=== PATIENT | male | born 1950 | race Caucasian/White ===

== ENCOUNTER → 2016-12-26 | Outpatient (CLI) | payer OTHER ==
[~2016-12-26] MED LIST: ACET-1256 PO; ACET325T96 PO; ASPI81TA28 PO; ATOR-24 PO
--- NOTE | 2016-12-26 11:35 | DIAGNOSTIC IMAGING REPORT ---
ORBIT RADIOGRAPHS 3 VIEWS HISTORY: Pre-MRI pre-MRI screening. COMPARISON: None. FINDINGS: There are no radiopaque foreign bodies identified within the orbits. IMPRESSION: No radiopaque foreign bodies identified within the orbits. Electronically signed by: Zeferino Soto M.D. 12/26/2016 11:34 AM Dictated Date/Time: 12/26/2016 11:33 AM
--- NOTE | 2016-12-26 12:16 | DIAGNOSTIC IMAGING REPORT ---
MRI THE RIGHT KNEE NO CONTRAST CLINICAL HISTORY: Right knee pain. Suspected meniscal tear. COMPARISON STUDY: No previous studies for comparison. FINDINGS: Imaging was performed in sagittal, coronal, and axial planes. The patellar retinacular structures appear intact. There is a small popliteal cyst. There are no areas of marrow edema to indicate occult fracture or bone bruise. The quadriceps and patellar tendons appear intact. The anterior and posterior cruciate ligaments appear intact. The medial and lateral collateral ligaments appear intact. There is a complex bucket-handle tear of the lateral meniscus. There is a subtle tear involving the periphery of the medial meniscus reaching inferior meniscal surface. IMPRESSION: 1. Complex bucket-handle tear the lateral meniscus 2. Subtle tear involving the periphery of the medial meniscus 3. No evidence of cruciate or collateral ligament disruption Electronically signed by: Chase Haywood M.D. 12/26/2016 12:14 PM Dictated Date/Time: 12/26/2016 12:10 PM
--- NOTE | 2016-12-26 12:48 | DIAGNOSTIC IMAGING REPORT ---
LUMBAR SPINE W/O CONTRAST HISTORY: 66-year-old male presents with chronic low back pain which radiates into the right lower extremity. No reported trauma. COMPARISON: None available. TECHNIQUE: Multiplanar multisequence noncontrast MRI of the lumbar spine was obtained. FINDINGS: The vertebral body heights are well-maintained without compression deformity. There is no fracture, focal bone marrow edema or marrow replacing process. Conus medullaris terminates at the L1-L2 level. The imaged intra-abdominal, intrapelvic and paraspinal structures demonstrate no acute abnormality. Disc desiccation is seen most notably at the L4-L5 and L5-S1 levels. There is moderate intervertebral disc space narrowing at L5-S1 with circumferential annular disc bulging as described below. T10-T11; T11-T12; T12-L1: Unremarkable knee sagittal series alone. L1-L2: No significant central canal or neuroforaminal narrowing. L2-L3: Mild facet arthropathy and ligamentum flavum redundancy without significant central canal or neuroforaminal narrowing. L3-L4: Mild to moderate facet arthropathy and ligamentum flavum redundancy with small circumferential annular disc bulge effaces the ventral thecal sac without significant central canal or neuroforaminal narrowing. L4-L5: Disc desiccation with moderate facet arthropathy and ligamentum flavum redundancy is present in conjunction with circumferential annular disc bulge. This causes mild bilateral foraminal narrowing without significant central canal stenosis. L5-S1: Moderate intervertebral disc space narrowing with Modic type III endplate changes. Circumferential annular disc bulge is present in conjunction with moderate facet arthropathy and ligamentum flavum redundancy. There is a broad-based central disc protrusion which causes mild central canal narrowing. There is mild to moderate right and mild left neuroforaminal stenosis. IMPRESSION: 1. Moderate intervertebral disc space narrowing at L5-S1 is present in conjunction with circumferential annular disc bulge and superimposed central broad-based disc protrusion which causes mild central canal, mild to moderate right and mild left foraminal stenosis. 2. Disc degeneration at L4-L5 causes mild bilateral foraminal narrowing. 3. No fracture or focal bone marrow edema. Electronically signed by: Misha Banuelos 12/26/2016 12:46 PM Dictated Date/Time: 12/26/2016 12:37 PM
== END | disposition home or self-care (01) ==
LOC: C.MRIBC 11:10
PROVIDERS: ATTEND Orthopaedic Surgery
DX: M54.9 Dorsalgia, unspecified (principal); M79.606 Pain in leg, unspecified; S83.209A Unspecified tear of unspecified meniscus, current injury, unspecified knee, initial encounter; X58.XXXA Exposure to other specified factors, initial encounter

== ENCOUNTER → 2017-01-16 | Outpatient (CLI) | payer OTHER ==
[2017-01-16 13:22] LABS: BASO % 0.3 %; BASO ABS # 0.02 K/uL (0-0.2); COMPLETE YES; EOS % 1.4 %; HEMATOCRIT 45.5 % (42-52); IG% 0.1 %; LYMPH % 34.6 %; LYMPH ABS # 2.72 K/uL (1.2-3.4); MEAN CELL VOLUME 84.3 fL (80-100); MEAN CORPUSCULAR HEMOGLOBIN 29.1 pg (25-34); MEAN CORPUSCULAR HGB CONC 34.5 g/dl (32-36); MEAN PLATELET VOLUME 10.3 fL (7.4-10.4); MONO % 8.4 %; NEUT % 55.2 %; PLATELET COUNT 174 K/uL (130-400); WHITE BLOOD COUNT 7.86 K/uL (4.8-10.8)
== END | disposition home or self-care (01) ==
LOC: C.CPL 12:45
PROVIDERS: ATTEND Orthopaedic Surgery
DX: Z01.810 Encounter for preprocedural cardiovascular examination (principal); S83.281A Other tear of lateral meniscus, current injury, right knee, initial encounter; X58.XXXA Exposure to other specified factors, initial encounter

== ENCOUNTER → 2017-02-12 | Day surgery (SDC) | payer OTHER ==
[2017-01-18 10:44] VITALS: BMI 26.0
[2017-02-06 07:59] VITALS: Ht 180.3 cm; Wt 85.5 kg
[~2017-02-12] VITALS: Ht 180.3 cm; Wt 85.5 kg
[~2017-02-12] MED LIST changes: -ACET325T96 PO; +CEFAZOLIN 2000 MG/60 ML D5W IV SCH; +LACTATED RINGER'S 1000ML 1,000 ML IV SCH
== END | disposition home or self-care (01) ==
LOC: EDSTATUS 08:00 → C.PAT 12:48
PROVIDERS: ATTEND Orthopaedic Surgery
DX: S83.281A Other tear of lateral meniscus, current injury, right knee, initial encounter (principal); Z53.9 Procedure and treatment not carried out, unspecified reason; X58.XXXA Exposure to other specified factors, initial encounter

== ENCOUNTER → 2017-07-05 | Outpatient (CLI) | payer OTHER ==
[~2017-07-05] MED LIST changes: -ACET-1256 PO; -CEFAZOLIN 2000 MG/60 ML D5W IV SCH; +CLOP1TAB15 PO; +GLC/500 PO; +INSDGIPEN SC; -LACTATED RINGER'S 1000ML 1,000 ML IV SCH; +METO25TA56 PO; +MISCCAP63 PO; +SITA50TA3 PO; +TRAM-10 PO
[2017-07-05 14:59] LABS: BASO % 0.6 %; BASO ABS # 0.04 K/uL (0-0.2); EOS ABS # 0.14 K/uL (0-0.5); HEMATOCRIT 43.6 % (42-52); HEMOGLOBIN 14.7 g/dL (14.0-18.0); IG# 0.01 K/uL (0.00-0.02); LYMPH % 40.2 %; LYMPH ABS # 2.84 K/uL (1.2-3.4); MEAN CELL VOLUME 85.8 fL (80-100); MEAN CORPUSCULAR HEMOGLOBIN 28.9 pg (25-34); MEAN CORPUSCULAR HGB CONC 33.7 g/dl (32-36); MONO % 9.1 %; MONO ABS # 0.64 K/uL (0.11-0.59); PLATELET COUNT 201 K/uL (130-400); RED CELL DISTRIBUTION WIDTH CV 13.7 % (11.5-14.5); WHITE BLOOD COUNT 7.07 K/uL (4.8-10.8)
[2017-07-05 15:10] LABS: ALBUMIN 4.2 gm/dl (3.4-5.0); ALT/SGPT 32 U/L (12-78); BLOOD UREA NITROGEN 25 mg/dl (7-18); CALCIUM 9.3 mg/dl (8.5-10.1); CARBON DIOXIDE 29 mmol/L (21-32); CREATININE 0.93 mg/dl (0.60-1.40); GLUCOSE 107 mg/dl (70-99); POTASSIUM 4.2 mmol/L (3.5-5.1); SODIUM 138 mmol/L (136-145)
[2017-07-05 15:13] LABS: ALKALINE PHOSPHATASE 60 U/L (45-117); AST/SGOT 25 U/L (15-37); TOTAL PROTEIN 7.8 gm/dl (6.4-8.2)
[2017-07-05 15:27] LABS: PTT PATIENT 24.7 SECONDS (21.0-31.0)
== END | disposition home or self-care (01) ==
LOC: C.CPL 11:51
PROVIDERS: ATTEND Orthopaedic Surgery
DX: Z01.812 Encounter for preprocedural laboratory examination (principal); Z01.810 Encounter for preprocedural cardiovascular examination; S83.281A Other tear of lateral meniscus, current injury, right knee, initial encounter; X58.XXXA Exposure to other specified factors, initial encounter

== ENCOUNTER → 2017-07-16 | Day surgery (SDC) | payer OTHER ==
[2017-06-27 10:08] VITALS: BMI 28.0
[2017-07-05 15:18] VITALS: Ht 176.5 cm; Wt 87.0 kg
--- NOTE | 2017-07-05 15:52 | PAT Medication Instructions ---
Service Date Jul 05, 2017. Current Home Medication List Aspirin (Aspirin Ec), 81 MG PO QAM Atorvastatin (Lipitor), 40 MG PO QPM Clopidogrel (Plavix), 75 MG PO QAM Insulin Glargine (Lantus Solostar), 38 UNITS SC QPM Metformin Hcl (Glucophage), 2 TABS PO BID Metoprolol Tartrate (Lopressor) (Lopressor), 25 MG PO BID Misc Natural Products (Prostate Health), 1 CAP PO QAM Sitagliptin (Januvia), 100 MG PO QAM Tramadol (Ultram), 50 MG PO Q4H PRN for Pain Medication Instructions For Your Scheduled Surgery - Contact your second ride fare collector for instructions for: Clopidogrel (Plavix), 75 MG PO QAM - Hold the following medications 48 hours prior to surgery: Metformin Hcl (Glucophage), 2 TABS PO BID - Hold the following medications the morning of surgery: Misc Natural Products (Prostate Health), 1 CAP PO QAM Sitagliptin (Januvia), 100 MG PO QAM - Take the following medications the morning of surgery with a sip of water: Tramadol (Ultram), 50 MG PO Q4H PRN for Pain (if needed) Metoprolol Tartrate (Lopressor) (Lopressor), 25 MG PO BID Aspirin (Aspirin Ec), 81 MG PO QAM - Take the following medications as scheduled the night before surgery: Tramadol (Ultram), 50 MG PO Q4H PRN for Pain (if needed) Metoprolol Tartrate (Lopressor) (Lopressor), 25 MG PO BID Atorvastatin (Lipitor), 40 MG PO QPM Insulin Glargine (Lantus Solostar), 38 UNITS SC QPM If you have any questions please call us at [phone] or [phone] or [phone]
[~2017-07-16] VITALS: Ht 176.5 cm; Wt 87.0 kg
[~2017-07-16] MED LIST changes: +ATROPINE SULFATE 0.1 MG/ML 5ML SYR IV PRN; +BUPIVACAINE 0.5 % 5 MG/1 ML PF 10ML VIAL ONE; +CEFAZOLIN 2000MG IV PUSH 10 ML IV SCH; +EpHEDrine SULFATE INJ 50 MG/ML AMP IV PRN; +EpINEphrine INJ 1MG/ML AMP 1 MG/ML AMP ONE; +FENTANYL CITRATE INJ 50 MCG/1 ML 2 ML VIAL IV PRN; +FENTANYL CITRATE INJ 50 MCG/1 ML 2 ML VIAL ONE; +HYDROmorphone INJ 1 MG/ML SYR IV PRN; +KETOROLAC TROMETHAMINE 30 MG/ML VIAL ONE; +LIDOCAINE HCL 2% 2 ML VIAL (20MG/ML) ONE; +MIDAZOLAM HCL 1 MG/ML 2ML VIAL ONE; +ONDANSETRON INJ 2 MG/ML 2 ML VIAL IV PRN; +ONDANSETRON INJ 2 MG/ML 2 ML VIAL ONE; +OXYCODONE/ACETAMINOPHEN 5-325 TAB PO PRN; +PHENYLEPHRINE HCL INJ 10 MG/ML VIAL ONE; +PROMETHAZINE HCL INJ 12.5 MG in SODIUM CHLORIDE 0.9% 50ML 50 ML IV PRN; +PROPOFOL IV EMULSION 10 MG/ML 20 ML VIAL IV ONE; +ROPIVACAINE 0.5% 5 MG/ML 30 ML VIAL ONE; +SODIUM CHLORIDE 0.9% 1000ML 1,000 ML IV SCH
--- NOTE | 2017-07-16 07:46 | History & Physical Bridge - SC ---
H&P Re-Evaluation Bridge Note: I have examined the patient, reviewed the History & Physical and in the interval since the performance of the History & Physical I have noted the following changes of clinical significance: No changes noted
[2017-07-16] MEDS: LACTATED RINGER'S 1000ML 1,000 ML IV SCH ×2 (07:50→09:50)
--- NOTE | 2017-07-16 09:26 | [facility] Post Operative Brief Note ---
Immediate Operative Summary Operative Date Jul 16, 2017. Pre-Operative Diagnosis Right Knee Lateral Meniscus Tear Post-Operative Diagnosis same as pre op Procedure(s) Performed Right Knee Arthroscopy, Partial Lateral Meniscectomy Surgeon Dr Ortega Photogrammetry Airplane Pilot Surgeon(s) ELVIA Cintron Estimated Blood Loss 0ml Findings Consistent with Post-Op Diagnosis Specimens none Drains None Anesthesia Type General Complication(s) none Disposition Disposition: Recovery Room / PACU
--- NOTE | 2017-07-16 09:41 | Discharge Instructions-SurgCtr ---
Discharge Instructions Date of Service Jul 16, 2017. Visit Reason for Visit: Right Knee Lateral Meniscus Tear Discharge Discharge Diagnosis / Problem: SAME ABOVE Discharge Goals Goal(s): Decrease discomfort, Improve function Medications Stopped Medications Name(s): Metformin stopped 07/13/17 Activity Recommendations Activity Limitations: as noted below Lifting Limitations: until after follow-up appointment Exercise/Sports Limitations: until after follow-up appointment Shower/Bathe: tomorrow Weightbearing Status: Right weightbearing (as tolerated) Anesthesia . Post Anesthesia Instructions: If you have had General Anesthesia or IV Sedation: * Do not drive today. * Resume driving when surgeon permits. * Do not make important decisions or sign legal documents today. * Call surgeon for: 1. Temperature elevations greater than 101 degrees F. 2. Uncontrollable pain. 3. Excessive bleeding. 4. Persistent nausea and vomiting. 5. Medication intolerance (nausea, vomiting or rash). * For nausea and vomiting use only clear liquids such as: tea, soda, bouillon until nausea subsides, then gradually increase diet as tolerated. * If you have any concerns or questions, call your surgeon's office. If physician is unavailable and it is an emergency, call 911 or go to the nearest emergency room. . Instructions / Follow-Up Instructions / Follow-Up MEDICATIONS: * Resume previous medications unless instructed otherwise by your surgeon. * Always take pain medication on a full stomach or with food to avoid upset stomach. * Do not drink alcohol or drive while taking narcotics. * Ibuprofen or Tylenol may be taken if narcotic not needed. SPECIAL CARE INSTRUCTIONS: __ None _X_ Keep extremity elevated and iced x 48 hours; apply ice 20-30 minutes 8-10 times/day. May remove at night. __ Crutches __ May discard when able __ Brace/Post-op shoe __ 24 hrs/day __ Remove at night _X_ Dressing __ Maintain until seen in office, may shower with plastic over site _X_ Remove dressings in 24-48 hours and then may shower _X_ Cover incisions with band-aids after showering __ Do not remove steri-strips Call physician if chills or temperature rises above 102 degrees or pain unrelieved by prescribed pain medications. Office [phone] Diet Recommendations Home Diet: resume previous diet Procedures Procedures Performed: Right Knee Arthroscopy, Partial Lateral Meniscectomy Pending Studies Studies pending at discharge: no Medical Emergencies . Who to Call and When: Medical Emergencies: If at any time you feel your situation is an emergency, please call 911 immediately. . Non-Emergent Contact Non-Emergency issues call your: Primary Care Provider . . "Provider Documentation" section prepared by Shravan Dawn. .
--- NOTE | 2017-07-16 09:56 | OPERATIVE REPORT ---
DATE OF OPERATION: 07/16/2017 PREOPERATIVE DIAGNOSIS: Chronic bucket tear lateral meniscus, right knee. POSTOPERATIVE DIAGNOSIS: Same. PROCEDURE: Right knee arthroscopy, partial lateral meniscectomy. SURGEON: Dr. Eliezer Ortega. AUTO SLIP COVER INSTALLER: Shravan Dawn PA-C. ANESTHESIOLOGIST: Katlyn. ANESTHESIA: General. DRAINS: None. COMPLICATIONS: None. CONDITION: The patient tolerated the procedure well and returned to the recovery room in apparent satisfactory condition case. INDICATIONS FOR SURGERY: Sherwin is a 67-year-old aparicio who has had knee pain for over a year. He was diagnosed last spring with a bucket handle tear, was unable to undergo surgery because of cardiac reasons. Finally, got it clear to go ahead and bring him to the surgery today. Procedure, expected outcomes and side effects, and risks were all explained in detail. DESCRIPTION OF PROCEDURE: The patient was taken to the OR at which time, he was placed supine on the operating table and put to sleep by the anesthesia department. Examination of right knee was performed. Ligamentous-garay, this was stable. We went ahead and prepped and draped in usual sterile fashion. We began arthroscopic examination in the anteromedial and anterolateral portals. Immediately in the intercondylar notch, a large flap tear of the lateral meniscus was present. It was actually assisting it also. We came in on the medial side and evaluated it. It had a very small rim tear. We trimmed back. The articular surface was good. The ACL was fine. Attention was given to the lateral side. The meniscus was so chronically torn, I could not even reduce it back into the joint. I was able to attach it posteriorly and then the anterior fragment was removed without incident. Believe it or not, the articular surfaces looked in pretty good shape considering he had a chronic bucket handle tear. We trimmed out the remaining part of the stump of the meniscus. Patellofemoral joint was inspected and it was fine. There were no other abnormalities noted in the knee joint. Knee then was copiously irrigated. All cannulas were removed. Portals were closed with 4-0 nylon sutures; 30 mL of ropivacaine and 10 mg of Toradol, 1 mL epinephrine was placed in the knee joint. Placed a sterile dressing of Xeroform, 4 x 4, ABD, Sof-Rol, and Akash bandage, and returned back to recovery room in apparent satisfactory condition. SURGICAL FINDINGS: Included a chronic displaced bucket handle tear of the lateral meniscus. I attest to the content of the Intraoperative Record and any orders documented therein. Any exception s are noted below.
--- NOTE | 2017-07-16 10:43 | Anesthesia Progress Nt - [facility] ---
Anesthesia Post Op Note Date & Time Jul 16, 2017 at 10:43 Vital Signs Pain Intensity: 0 Vital Signs Past 12 Hours Date Time Temp Pulse Resp B/P (MAP) Pulse Ox O2 Delivery O2 Flow Rate FiO2 07/16/17 10:18 36.6 74 16 113/69 (84) 97 Room Air 07/16/17 10:16 36.6 110/71 (80) 07/16/17 10:15 75 1 97 07/16/17 10:15 76 1 07/16/17 10:11 110/72 (80) 07/16/17 10:10 80 5 97 07/16/17 10:10 80 5 07/16/17 10:08 Room Air 07/16/17 10:06 104/67 (72) 07/16/17 10:05 80 18 07/16/17 10:05 81 18 99 07/16/17 10:01 92/67 (77) 07/16/17 10:00 74 13 07/16/17 10:00 75 13 99 07/16/17 09:56 100/67 (81) 07/16/17 09:55 75 13 07/16/17 09:55 75 13 99 07/16/17 09:51 95/63 (70) 07/16/17 09:50 74 13 99 07/16/17 09:50 74 13 07/16/17 09:46 99/67 (79) 07/16/17 09:45 74 13 07/16/17 09:45 74 13 99 07/16/17 09:41 103/67 (74) 07/16/17 09:40 73 13 99 07/16/17 09:40 71 13 07/16/17 09:37 99/70 (81) 07/16/17 09:37 36.2 70 16 99/70 97 Mask 6 07/16/17 07:28 36.6 83 20 126/86 (99) 97 Room Air Notes Mental Status: alert / awake / arousable, participated in evaluation Pt Amnestic to Procedure: Yes Nausea / Vomiting: adequately controlled Pain: adequately controlled Airway Patency, RR, SpO2: stable & adequate BP & HR: stable & adequate Hydration State: stable & adequate Anesthetic Complications: no major complications apparent
[2017-07-16 10:48] VITALS: BP 126/77; PULSE 76; O2SAT 98
== END | disposition home or self-care (01) ==
LOC: X.SURG 07:05
PROVIDERS: ATTEND Orthopaedic Surgery
DX: M23.261 Derangement of other lateral meniscus due to old tear or injury, right knee (principal); E11.9 Type 2 diabetes mellitus without complications; I25.10 Atherosclerotic heart disease of native coronary artery without angina pectoris; I10 Essential (primary) hypertension